=== PATIENT | female | born 1980 | race American Indian/Alaskan Native ===

== ENCOUNTER 2017-09-20 10:48 | Emergency (ER) | payer MEDICAID, OTHER ==
[2017-09-20] MEDS ORDERED: ATROVENT IH ONE ×2 (10:56→10:59)
[2017-09-20] MEDS ORDERED: XOPENEX IH ONE (10:57)
--- NOTE | 2017-09-20 11:03 | Emergency Department Report ---
ED Shortness of Breath HPI - General Stated Complaint: CHEST PAIN Time Seen by Provider: 09/20/17 10:56 Source: patient, EMS - History of Present Illness Initial Comments: Patient is 37 years old female history of asthma and diabetes, patient brought by EMS in acute respiratory distress, patient stated that her symptoms started last night, she took albuterol but is not helping, symptoms get worse today. Patient is also complaining of chest pain substernal tightness, does not radiate. Patient symptom associated with his cough nonproductive associated with shortness of breath. Patient denied any fever, nausea or vomiting. MD Complaint: shortness of breath, cough, chest pain, "asthma attack" -: Last night Severity: moderate Known History Of: asthma, diabetes Associated Symptoms: cough Treatments Prior to Arrival: oxygen, bronchodilator, nitroglycerin - Related Data Home Oxygen Therapy: No Home Medications Medication Instructions Recorded Confirmed Last Taken ALBUTEROL Inhaler [ProAir HFA 2 puff IH PRN PRN 05/15/14 05/31/14 Unknown Inhaler] Insulin Glargine [Lantus VIAL] 20 unit SQ HS 05/15/14 05/31/14 05/24/14 22:00 glipiZIDE [glipiZIDE XL] 10 mg PO DAILY 05/15/14 05/31/14 05/25/14 19:00 Lisinopril 5 mg PO DAILY 05/19/14 05/31/14 05/25/14 19:00 Previous Rx's Medication Instructions Recorded Last Taken Type Docusate Sodium [Colace CAP] 100 mg PO QDAY PRN #30 capsule 05/29/14 Unknown Rx Ferrous Sulfate [Feosol 325 MG tab] 325 mg PO QDAY #90 tablet 05/29/14 Unknown Rx Cephalexin [Keflex] 500 mg PO BID #14 capsule 09/27/14 Unknown Rx oxyCODONE /ACETAMINOPHEN [Percocet 1 tab PO Q6HR PRN #10 tablet 09/27/14 Unknown Rx 5/325 mg] Allergies Allergy/AdvReac Type Severity Reaction Status Date / Time hydromorphone HCl Allergy Itching Verified 05/15/14 10:51 [From Dilaudid] latex Allergy Rash Verified 05/15/14 10:51 naproxen Allergy Rash Verified 05/15/14 10:51 metformin AdvReac Diarrhea Verified 05/15/14 10:51 ED Review of Systems ROS: Stated complaint: CHEST PAIN Other details as noted in HPI Comment: All other systems reviewed and negative Constitutional: denies: chills, fever ENT: denies: throat pain, dental pain Respiratory: cough, shortness of breath, SOB with exertion, SOB at rest, wheezing. denies: orthopnea Cardiovascular: chest pain, dyspnea on exertion. denies: palpitations Gastrointestinal: denies: abdominal pain, nausea, vomiting, diarrhea, constipation, hematemesis, melena, hematochezia Neurological: denies: headache, weakness, numbness, paresthesias ED Past Medical Hx - Past Medical History Hx Hypertension: Yes (2 years) Hx Diabetes: Yes (10 years) Hx Deep Vein Thrombosis: No Hx GERD: Yes Hx Renal Disease: No Hx Sickle Cell Disease: No Hx Headaches / Migraines: Yes (past hx) Hx Seizures: No Hx Asthma: Yes (albuterol, symbicort) Hx COPD: No Hx HIV: No Additional medical history: fibroids - Surgical History Additional Surgical History: myoectomy (10 fibroids removed) Apr 2014. - Social History Smoking Status: Former Smoker Substance Use Type: None - Medications Home Medications: Home Medications Medication Instructions Recorded Confirmed Last Taken Type ALBUTEROL Inhaler [ProAir HFA 2 puff IH PRN PRN 05/15/14 05/31/14 Unknown History Inhaler] Insulin Glargine [Lantus VIAL] 20 unit SQ HS 05/15/14 05/31/14 05/24/14 22:00 History glipiZIDE [glipiZIDE XL] 10 mg PO DAILY 05/15/14 05/31/14 05/25/14 19:00 History Lisinopril 5 mg PO DAILY 05/19/14 05/31/14 05/25/14 19:00 History Docusate Sodium [Colace CAP] 100 mg PO QDAY PRN #30 capsule 05/29/14 05/31/14 Unknown Rx Ferrous Sulfate [Feosol 325 MG tab] 325 mg PO QDAY #90 tablet 05/29/14 05/31/14 Unknown Rx Cephalexin [Keflex] 500 mg PO BID #14 capsule 09/27/14 Unknown Rx oxyCODONE /ACETAMINOPHEN [Percocet 1 tab PO Q6HR PRN #10 tablet 09/27/14 Unknown Rx 5/325 mg] ED Physical Exam - General Limitations: No Limitations General appearance: alert, in distress (moderate respiratory distress) - Head Head exam: Present: atraumatic, normocephalic, normal inspection - Eye Eye exam: Present: normal appearance, PERRL - ENT ENT exam: Present: normal exam, normal orophraynx, mucous membranes moist - Neck Neck exam: Present: normal inspection, full ROM. Absent: tenderness, meningismus, lymphadenopathy, thyromegaly - Respiratory Respiratory exam: Present: respiratory distress, wheezes, rhonchi, decreased breath sounds, prolonged expiratory. Absent: rales, stridor, chest wall tenderness, accessory muscle use - Cardiovascular Cardiovascular Exam: Present: tachycardia. Absent: systolic murmur, diastolic murmur, rubs, gallop - GI/Abdominal GI/Abdominal exam: Present: soft, normal bowel sounds. Absent: distended, tenderness, guarding, rebound, rigid, organomegaly, mass, bruit, pulsatile mass , hernia - Extremities Exam Extremities exam: Present: normal inspection, full ROM, normal capillary refill - Back Exam Back exam: Present: normal inspection, full ROM. Absent: tenderness, CVA tenderness (R), CVA tenderness (L) - Neurological Exam Neurological exam: Present: alert, oriented X3, CN II-XII intact, normal gait - Skin Skin exam: Present: warm, intact, normal color. Absent: cyanosis, diaphoretic, erythema ED Course Vital Signs 09/20/17 09/20/17 09/20/17 11:06 11:17 11:50 Pulse Rate 96 H Pulse Rate [ 100 H 105 H Anterior Bilateral Throughout] Respiratory 14 Rate Respiratory 25 H 22 Rate [Anterior Bilateral Throughout] Blood Pressure 141/85 O2 Sat by Pulse 100 Oximetry - Reevaluation(s) Reevaluation #1: 09/20/17 11:21 Discussed with Danelle with Dr. Andujar, inform about the patient and she stated that they're coming down to evaluate the patient. Reevaluation #2: 09/20/17 13:49 Patient stated that she is feeling much better. Chest pain is atypical. Lungs clear in both sides. ED Medical Decision Making - Lab Data Result diagrams: 09/20/17 11:21 09/20/17 11:21 - Medical Decision Making Patient stated that she is feeling much better, she denied any chest pain, shortness of breath, nausea or vomiting. Patient was seen by Dr. Sims, pigment presser who stated that patient symptom is most likely atypical, he recommend that patient can be discharged home and to follow-up with him in his office. Second troponin is negative. Critical care attestation.: If time is entered above; I have spent that time in minutes in the direct care of this critically ill patient, excluding procedure time. ED Disposition Clinical Impression: Chest pain, Shortness of breath, Hyperglycemia Disposition: DC- TO HOME OR SELFCARE Is pt being admited?: No Condition: Stable Instructions: Chest Pain (ED), Asthma (ED) Referrals: PRIMARY CARE, [Primary Care Provider] - 3-5 Days
[2017-09-20 11:42] LABS: Hematocrit 32.5 % (30.3-42.9); Hemoglobin 10.6 gm/dl (10.1-14.3); Mean Corpuscular HGB Conc 33 % (30-34); Mean Corpuscular Hemoglobin 26 pg (28-32); Mean Corpuscular Volume 81 fl (79-97); Platelet Count 308 K/mm3 (140-440); Red Blood Count 4.01 M/mm3 (3.65-5.03); Red Cell Distribution Width 16.4 % (13.2-15.2)
[2017-09-20 11:58] LABS: INR 0.94 (0.87-1.13)
[2017-09-20 11:59] LABS: Partial Thromboplastin Time 30.3 Sec. (24.2-36.6)
[2017-09-20 12:14] LABS: Alanine Aminotransferase 14 units/L (7-56); Albumin 3.9 g/dL (3.9-5); BUN/Creatinine Ratio 10; Blood Urea Nitrogen 7 mg/dL (7-17); Calcium 8.7 mg/dL (8.4-10.2); Hemolysis Index 2
[2017-09-20 12:35] LABS: Total Cells Counted 100
[2017-09-20 12:36] LABS: Basophils % (Manual) 0 % (0.0-1.8); Eosinophils % (Manual) 0 % (0.0-4.3); RBC Morphology Normal
[2017-09-20 12:37] LABS: Large Platelets Rare; Platelet Estimate Cons
[2017-09-20] MEDS ORDERED: MORPHINE IV ONE (12:45)
--- NOTE | 2017-09-20 12:49 | XRay Report ---
PORTABLE CHEST INDICATION: Dyspnea. COMPARISON: None similar. FINDINGS: Portable, frontal chest radiograph suggests slight bibasilar haziness, possibly technical versus slight congestive or atelectasis. Right hemidiaphragm not sharply delineated. No large pleural effusions however. Normal cardiomediastinal silhouette/borderline cardiomegaly. Mild to moderate mid to lower thoracic dextroscoliosis. CONCLUSION: Borderline cardiomegaly and slight basilar congestion/atelectasis questioned, as described. Please correlate. Thank you for the opportunity to participate in this patient's care.
[2017-09-20] MEDS ORDERED: MORPHINE ONE (12:52)
--- NOTE | 2017-09-20 13:30 | Consultation ---
History of Present Illness Consult date: 09/20/17 Requesting physician: LAURA ROLDAN Consult reason: chest pain History of present illness: The patient is a 37 year old female with a history of diabetes and asthma who presented with complaints of cough, fever, chills and worsening shortness of breath over the past several days. Her shortness of breath got worse last night and she developed substernal chest pain described as tightness, pressure and squeezing. Pain is non radiating and worse with deep inspiration. She also reports nausea and vomiting earlier this morning. D-dimer negative. Troponin negative x 2. BNP 180. EKG shows sinus tach with incomplete LBBB. No previous cardiac evaluation. Of note, she does have reproducible anterior chest wall tenderness on exam. Past History Past Medical History: diabetes, other (asthma, fibroids, peripheral neuropathy) Past Surgical History: , Other (myomectomy) Social history: , lives with family, full code. denies: smoking, alcohol abuse, prescription drug abuse, IV drug use Family history: no significant family history Medications and Allergies Allergies Allergy/AdvReac Type Severity Reaction Status Date / Time hydromorphone HCl Allergy Itching Verified 05/15/14 10:51 [From Dilaudid] latex Allergy Rash Verified 05/15/14 10:51 naproxen Allergy Rash Verified 05/15/14 10:51 metformin AdvReac Diarrhea Verified 05/15/14 10:51 Home Medications Medication Instructions Recorded Confirmed Last Taken Type ALBUTEROL Inhaler [ProAir HFA 2 puff IH PRN PRN 05/15/14 05/31/14 Unknown History Inhaler] Insulin Glargine [Lantus VIAL] 20 unit SQ HS 05/15/14 05/31/14 05/24/14 22:00 History glipiZIDE [glipiZIDE XL] 10 mg PO DAILY 05/15/14 05/31/14 05/25/14 19:00 History Lisinopril 5 mg PO DAILY 05/19/14 05/31/14 05/25/14 19:00 History Docusate Sodium [Colace CAP] 100 mg PO QDAY PRN #30 capsule 05/29/14 05/31/14 Unknown Rx Ferrous Sulfate [Feosol 325 MG tab] 325 mg PO QDAY #90 tablet 05/29/14 05/31/14 Unknown Rx Cephalexin [Keflex] 500 mg PO BID #14 capsule 09/27/14 Unknown Rx oxyCODONE /ACETAMINOPHEN [Percocet 1 tab PO Q6HR PRN #10 tablet 09/27/14 Unknown Rx 5/325 mg] Ondansetron [Zofran Odt] 4 mg PO Q8HR PRN #14 tab.rapdis 09/20/17 Unknown Rx Prednisone [predniSONE (Sejal) ER 40 mg PO QDAY #40 tablet. 09/20/17 Unknown Rx TAB] Review of Systems Constitutional: fever, chills Ears, nose, mouth and throat: no nasal congestion, no nasal discharge, no sinus pressure Cardiovascular: chest pain, shortness of breath, no leg edema Respiratory: cough, shortness of breath Gastrointestinal: abdominal pain, nausea, vomiting, no diarrhea, no constipation Genitourinary Female: no dysuria, no urgency Musculoskeletal: no neck stiffness, no neck pain, no myalgias Integumentary: no rash, no pruritis Neurological: no parathesias, no numbness, no tingling, no seizures Endocrine: no cold intolerance, no heat intolerance Hematologic/Lymphatic: no easy bruising, no easy bleeding Allergic/Immunologic: no urticaria, no wheezing Physical Examination Last Vital Signs Temp Pulse 105 H 09/20/17 11:50 Resp 22 09/20/17 11:50 BP 141/85 09/20/17 11:17 Pulse Ox 100 09/20/17 11:17 General appearance: mild distress HEENT: Positive: PERRL, Normocephaly, Mucus Membranes Moist Neck: Positive: neck supple, trachea midline Cardiac: Positive: Reg Rate and Rhythm, S1/S2 Lungs: Positive: clear to auscultation Neuro: Positive: Grossly Intact Abdomen: Positive: Soft, Active Bowel Sounds, Tender Skin: Positive: Clear. Negative: Rash Musculoskeletal: other (reproducible anterior chest wall tenderness) Extremities: Present: normal. Absent: edema Results 09/20/17 11:21 09/20/17 11:21 Cardiac Enzymes 09/20/17 Range/Units 11: AST 15 (5-40) units/L Coagulation 09/20/17 Range/Units 11:21 PT 13.0 (12.2-14.9) Sec. INR 0.94 (0.87-1.13) APTT 30.3 (24.2-36.6) Sec. CBC 09/20/17 Range/Units 11:21 WBC 4.2 L (4.5-11.0) K/mm3 RBC 4.01 (3.65-5.03) M/mm3 Hgb 10.6 (10.1-14.3) gm/dl Hct 32.5 (30.3-42.9) % Plt Count 308 (140-440) K/mm3 Comprehensive Metabolic Panel 09/20/17 Range/Units 11:21 Sodium 133 L (137-145) mmol/L Potassium 3.4 L (3.6-5.0) mmol/L Chloride 94.6 L (98-107) mmol/L Carbon Dioxide 23 (22-30) mmol/L BUN 7 (7-17) mg/dL Creatinine 0.7 (0.7-1.2) mg/dL Glucose 387 H (65-100) mg/dL Calcium 8.7 (8.4-10.2) mg/dL AST 15 (5-40) units/L ALT 14 (7-56) units/L Alkaline Phosphatase 115 (35-129) units/L Total Protein 7.0 (6.3-8.2) g/dL Albumin 3.9 (3.9-5) g/dL - Imaging and Cardiology EKG: report reviewed EKG interpretations - Telemetry EKG Rhythm: Sinus Tachycardia - EKG Sinus rhythms and dysrhythmias: sinus tachycardia AV and intraventricular conduction: left bundle branch block Assessment and Plan Assessment: Atypical chest pain Troponin negative x 2 D-dimer negative Incomplete LBBB Asthma exacerbation ?Viral illness Diabetes Plan: Given atypical chest pain and two sets of negative cardiac enzymes, recommend treatment of asthma exacerbation and possible viral illness. Given history of diabetes, may consider stress test when acute issues resolved. This may be done as an outpatient. The patient has been seen in conjunction with Dr. Perez who agrees with the assessment and plan of care.
[2017-09-20 14:51] VITALS: BP 165/89
== END 2017-09-20 15:54 | disposition home or self-care (01) ==
LOC: ED 10:48
DX: R07.2 Precordial pain (principal); R06.02 Shortness of breath; E11.65 Type 2 diabetes mellitus with hyperglycemia; K21.9 Gastro-esophageal reflux disease without esophagitis; G43.909 Migraine, unspecified, not intractable, without status migrainosus; J45.909 Unspecified asthma, uncomplicated; Z91.040 Latex allergy status; Z88.8 Allergy status to other drugs, medicaments and biological substances; Z87.891 Personal history of nicotine dependence; Z79.4 Long term (current) use of insulin
CPT/HCPCS: 36415; 71045; 80053; 83880; 84484; 85007; 85025; 85379; 85610; 85730; 93005; 93010; 94640; 96374; 96375; 99285; J2270; J2930; J1815